=== PATIENT | female | born 1985 | race African-American/Black ===

== ENCOUNTER 2017-05-20 10:46 | Emergency (ER) | payer SELFPAY ==
[~2017-05-20] VITALS: Ht 167.6 cm; Wt 96.2 kg
[2017-05-20 11:23] VITALS: BP 132/70
[2017-05-20 11:46] LABS: BILIRUBIN,URINE NEGATIVE (NEG); GLUCOSE,URINE NEGATIVE (NEG); NITRITE,URINE NEGATIVE (NEG); PROTEIN,URINE NEGATIVE (NEG-TRACE); UROBILINOGEN,URINE 0.2 mg/dL (0.2 mg/dL)
[2017-05-20 12:02] LABS: RBC,URINE 0 /HPF (0-2)
[2017-05-20 12:03] LABS: BACTERIA,URINE 0 /HPF (0-FEW); SQUAMOUS EPITHELIAL CELL,UR MOD /LPF; TRICHOMONAS,URINE PRESENT; WBC,URINE 20-40 /HPF (0-4)
[2017-05-20] MEDS ORDERED: SULF1TAB24 PO (12:17)
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
[2017-05-20] MEDS ORDERED: GABA-586 PO (12:26)
[2017-05-20] MEDS ORDERED: AZITHROMYCIN 250 MG TABLET. PO ONE (13:00)
[2017-05-20] MEDS ORDERED: cefTRIAXone IM 250 MG VIAL IM ONE (13:00)
[2017-05-20] MEDS ORDERED: metroNIDAZOLE 500 MG TABLET PO ONE (13:00)
== END 2017-05-20 12:40 | disposition home or self-care (01) ==
LOC: ER 10:46
DX: N39.0 Urinary tract infection, site not specified (principal); G62.9 Polyneuropathy, unspecified; A59.9 Trichomoniasis, unspecified; Z88.5 Allergy status to narcotic agent; Z88.8 Allergy status to other drugs, medicaments and biological substances
CPT/HCPCS: 81001; 81025; 87086; 96372; 99284; J0696; Q0144

== ENCOUNTER 2017-07-13 12:48 | Emergency (ER) | payer SELFPAY ==
[~2017-07-13] VITALS: Ht 167.6 cm; Wt 93.0 kg
[~2017-07-13 12:48] MED LIST: GABA-586 PO; SULF1TAB24 PO
[2017-07-13 13:35] VITALS: BP 123/75
[2017-07-13] MEDS ORDERED: CYCL10TA2 PO (14:07)
[2017-07-13] MEDS ORDERED: GABA-586 PO (14:07)
--- NOTE | 2017-07-13 14:08 | PHYS DOC ---
Past Medical History Past Medical History: Seizure, Other Additional Past Medical Histor: neuropathy Past Surgical History: Tubal ligation, Other Additional Past Surgical Histo: hand Alcohol Use: Occasionally Drug Use: None Adult General Chief Complaint Chief Complaint: MEDICATION REFILL [facility] HPI Patient is a 31 year old female presents to the emergency room saying that she is having lower back pain and discomfort. She states that she feels as though she 7 a spasming pain. She states he notices more when she is not working however when she is at work she states that she has sharp pains across his upper back. Patient states that she has neuropathy in her lower legs. She denies any pain or discomfort at the current time except for that in her lower back. Patient states she is on Neurontin which she takes for her seizures. Patient states that the Aleve arthritis helps with her feet pain and discomfort. Patient denies any loss of bowel or bladder denies any recent trauma. Review of Systems Review of Systems Constitutional: Denies fever or chills [] Eyes: Denies change in visual acuity, redness, or eye pain [] HENT: Denies nasal congestion or sore throat [] Respiratory: Denies cough or shortness of breath [] Cardiovascular: No additional information not addressed in HPI [] GI: Denies abdominal pain, nausea, vomiting, bloody stools or diarrhea [] : Denies dysuria or hematuria [] Musculoskeletal: lower back pain denies joint pain [] Integument: Denies rash or skin lesions [] Neurologic: Denies headache, focal weakness or sensory changes [] Endocrine: Denies polyuria or polydipsia [] All other systems were reviewed and found to be within normal limits, except as documented in this note. Allergies Allergies Allergies Coded Allergies Type Severity Reaction Last Updated Verified morphine Allergy Severe 05/20/17 Yes butorphanol Allergy Intermediate Hives 05/20/17 Yes Physical Exam Physical Exam Constitutional: Well developed, well nourished, no acute distress, non-toxic appearance. [] HENT: Normocephalic, atraumatic, bilateral external ears normal, oropharynx moist, no oral exudates, nose normal. [] Eyes: PERRLA, EOMI, conjunctiva normal, no discharge. [] Neck: Normal range of motion, no tenderness, supple, no stridor. [] Cardiovascular:Heart rate regular rhythm, no murmur [] Lungs & Thorax: Bilateral breath sounds clear to auscultation [] Abdomen: Bowel sounds normal, soft, no tenderness, no masses, no pulsatile masses. [] Skin: Warm, dry, no erythema, no rash. [] Back: No tenderness Extremities: No tenderness, no cyanosis, no clubbing, ROM intact, no edema. [] Neurologic: Alert and oriented X 3, normal motor function, normal sensory function, no focal deficits noted. [] Psychologic: Affect normal, judgement normal, mood normal. [] Current Patient Data Vital Signs Vital Signs Date Time Temp Pulse Resp B/P (MAP) Pulse Ox O2 Delivery O2 Flow Rate FiO2 07/13/17 13:35 98.8 92 20 97 Room Air 98.8 EKG EKG [] Radiology/Procedures Radiology/Procedures [] Course & Med Decision Making Course & Med Decision Making Pertinent Labs and Imaging studies reviewed. (See chart for details) Patient will be provided with Flexeril, recommended Aleve patient will be provided with gabapentin. Patient was instructed that Flexeril will cause drowsiness to take any regular and oriented. Patient will be discharged home in stable condition recommended ice packs on 20 minutes off several times a day. []I've spoken with the patient and/or caregivers. I've explained the patient's condition, diagnosis and treatment plan based on information available to me at this time. I've answered the patient's and/or caregivers questions and addressed any concerns. The patient and/or caregivers have a good understanding the patient's diagnosis, condition and treatment plan as can be expected at this point. Vital signs have been stabilized. The patient's condition is stable for discharge from the emergency department. The patient will pursue further outpatient evaluation with her primary care provider or other designated consulting physician as outlined in the discharge instructions. Patient and/or caregivers are agreeable to this plan of care and follow-up instructions have been explained in detail. The patient and/or caregivers have received these instructions in written format and expressed understanding of these discharge instructions. The patient and her caregivers are aware that if any significant change in condition or worsening of symptoms should prompt him to immediately return to this of the closest emergency department. If an emergent department is not readily available I would encourage him to call 911. Mikel Disclaimer Mikel Disclaimer This electronic medical record was generated, in whole or in part, using a voice recognition dictation system. Departure Departure Impression: Primary Impression: Medication refill Additional Impression: Back pain Disposition: 01 HOME, SELF-CARE Condition: STABLE Referrals: NO PCP (PCP) Patient Instructions: Back Pain, Adult, [id number], Medication Refill, Emergency Department Additional Instructions: Activity as tolerated. Medications prescribed. Flexural cause drowsiness do not take if needed to be alert and oriented. Make sure you eat when taking the Aleve to prevent upset stomach. Ice packs on 20 minutes off several times a day. Follow-up with the primary care physician in the next 5-7 days. Return back to her spreaders and symptoms become worse. Scripts Gabapentin (GABAPENTIN) 300 Mg Capsule 300 MG PO TID, #60 CAP Prov: LENARD HUTCHINS APRN 07/13/17 Cyclobenzaprine Hcl (CYCLOBENZAPRINE HCL) 10 Mg Tablet 1 TAB PO TID Y for MUSCLE SPASMS, #30 TAB Prov: LENARD HUTCHINS APRN 07/13/17 Problem Qualifiers Additional Impression: Back pain Back pain location: low back pain Chronicity: unspecified Back pain laterality: unspecified Sciatica presence: unspecified whether sciatica present Qualified Codes: M54.5 - Low back pain LENARD HUTCHINS APRN Jul 13, 2017 14:08
== END 2017-07-13 14:15 | disposition home or self-care (01) ==
LOC: ER 12:48
DX: M54.5 Low back pain (principal); Z76.0 Encounter for issue of repeat prescription; Z98.51 Tubal ligation status; Z88.5 Allergy status to narcotic agent; Z88.8 Allergy status to other drugs, medicaments and biological substances
CPT/HCPCS: 99283

== ENCOUNTER 2017-07-27 15:48 | Emergency (ER) | payer OTHER ==
[~2017-07-27] VITALS: Ht 167.6 cm; Wt 86.2 kg
[~2017-07-27 15:48] MED LIST changes: +CYCL10TA2 PO
[2017-07-27 16:13] VITALS: BP 118/75
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
[2017-07-27 16:28] LABS: BILIRUBIN,URINE SMALL (NEG); GLUCOSE,URINE NEGATIVE (NEG); NITRITE,URINE NEGATIVE (NEG); PH,URINE 6.5; PROTEIN,URINE 100 mg/dL (NEG-TRACE)
[2017-07-27 16:57] LABS: BACTERIA,URINE FEW /HPF (0-FEW); RBC,URINE >40 /HPF (0-2); SQUAMOUS EPITHELIAL CELL,UR FEW /LPF; WBC,URINE OCC /HPF (0-4)
[2017-07-27] MEDS ORDERED: FLUC150T PO (17:02)
[2017-07-27] MEDS ORDERED: DOXY100T9 PO (17:02)
[2017-07-27] MEDS ORDERED: cefTRIAXone IM 250 MG VIAL IM ONE (17:15)
[2017-07-27] MEDS ORDERED: AZITHROMYCIN 250 MG TABLET. PO ONE (17:15)
== END 2017-07-27 17:25 | disposition home or self-care (01) ==
LOC: ER 15:48
DX: R30.0 Dysuria (principal); R31.9 Hematuria, unspecified; G62.9 Polyneuropathy, unspecified; Z87.440 Personal history of urinary (tract) infections; Z88.5 Allergy status to narcotic agent; Z88.8 Allergy status to other drugs, medicaments and biological substances
CPT/HCPCS: 81001; 81025; 87491; 87591; 96372; 99284; J0696; Q0144

== ENCOUNTER 2017-12-25 15:11 | Emergency (ER) | payer SELFPAY, OTHER ==
[2017-12-25 15:38] LABS: URINE HCG POC HCG NEGATIVE (Negative)
[2017-12-25 15:49] LABS: BILIRUBIN,URINE NEGATIVE (NEG); CLARITY,URINE CLEAR; COLOR,URINE YELLOW; GLUCOSE,URINE NEGATIVE (NEG); NITRITE,URINE NEGATIVE (NEG); PROTEIN,URINE NEGATIVE (NEG-TRACE); UROBILINOGEN,URINE 0.2 mg/dL (0.2 mg/dL)
[2017-12-25 15:56] LABS: BACTERIA,URINE MOD /HPF (0-FEW); RBC,URINE 0 /HPF (0-2); SQUAMOUS EPITHELIAL CELL,UR MANY /LPF; TRICHOMONAS,URINE PRESENT
== END 2017-12-25 16:25 | disposition home or self-care (01) ==
LOC: ER 16:25
DX: N39.0 Urinary tract infection, site not specified (principal); J02.9 Acute pharyngitis, unspecified; R05 Cough; F12.10 Cannabis abuse, uncomplicated; F14.10 Cocaine abuse, uncomplicated; E11.9 Type 2 diabetes mellitus without complications; Z98.51 Tubal ligation status; Z88.6 Allergy status to analgesic agent; Z88.5 Allergy status to narcotic agent
CPT/HCPCS: 71046; 81001; 81025; 99285-25

== ENCOUNTER 2018-03-27 12:12 | Emergency (ER) | payer SELFPAY ==
[2018-03-27 13:06] LABS: ADD MAN DIFF? NO
[2018-03-27 13:09] LABS: URINE HCG POC HCG NEGATIVE (Negative)
[2018-03-27 13:11] LABS: BILIRUBIN,URINE NEGATIVE (NEG); CLARITY,URINE CLEAR; COLOR,URINE YELLOW; GLUCOSE,URINE NEGATIVE (NEG); NITRITE,URINE POSITIVE (NEG); PROTEIN,URINE NEGATIVE (NEG-TRACE)
[2018-03-27 13:15] LABS: BASO % 0 % (0-3); EOS # 0.1 x10^3/uL (0.0-0.7); EOS % 1 % (0-3); HEMATOCRIT 40.2 % (36.0-47.0); HEMOGLOBIN 13.8 g/dL (12.0-15.5); LYMPH # 1.8 x10^3/uL (1.0-4.8); LYMPH % 28 % (24-48); MEAN CORPUSCULAR HEMOGLOBIN 31 pg (25-35); MEAN CORPUSCULAR HGB CONC 34 g/dL (31-37); MEAN CORPUSCULAR VOLUME 90 fL (79-100); MONO # 0.5 x10^3/uL (0.0-1.1); MONO % 9 % (0-9); NEUT # 3.9 x10^3uL (1.8-7.7); NEUT % 62 % (31-73); PLATELET COUNT 277 x10^3/uL (140-400); RED BLOOD COUNT 4.44 x10^6/uL (3.50-5.40); RED CELL DISTRIBUTION WIDTH 13.2 % (11.5-14.5); WHITE BLOOD COUNT 6.3 x10^3/uL (4.0-11.0)
[2018-03-27 13:23] LABS: ANION GAP 4 (6-14); BACTERIA,URINE FEW /HPF (0-FEW); BLOOD UREA NITROGEN 13 mg/dL (7-20); BUN/CREATININE RATIO 11 (6-20); CALCIUM 9.2 mg/dL (8.5-10.1); CARBON DIOXIDE 30 mmol/L (21-32); CHLORIDE 104 mmol/L (98-107); CREATININE 1.2 mg/dL (0.6-1.0); GFR 63.8; GLUCOSE 76 mg/dL (70-99); POTASSIUM 3.9 mmol/L (3.5-5.1); RBC,URINE 0 /HPF (0-2); SODIUM 138 mmol/L (136-145); SQUAMOUS EPITHELIAL CELL,UR MOD /LPF
[2018-03-27 13:29] LABS: ALBUMIN/GLOBULIN RATIO 1.1 (1.0-1.7); ALK PHOS 77 U/L (46-116); ALT (SGPT) 32 U/L (14-59); AST (SGOT) 26 U/L (15-37); TOTAL BILIRUBIN 0.6 mg/dL (0.2-1.0); TOTAL PROTEIN 7.5 g/dL (6.4-8.2)
== END 2018-03-27 15:20 | disposition home or self-care (01) ==
LOC: ER 12:12
DX: S09.90XA Unspecified injury of head, initial encounter (principal); S20.212A Contusion of left front wall of thorax, initial encounter; S20.211A Contusion of right front wall of thorax, initial encounter; N39.0 Urinary tract infection, site not specified; F41.9 Anxiety disorder, unspecified; J45.909 Unspecified asthma, uncomplicated; Z98.51 Tubal ligation status; Z88.5 Allergy status to narcotic agent; Z88.8 Allergy status to other drugs, medicaments and biological substances; V03.90XA Pedestrian on foot injured in collision with car, pick-up truck or van, unspecified whether traffic or nontraffic accident, initial encounter; Y93.01 Activity, walking, marching and hiking; Y92.89 Other specified places as the place of occurrence of the external cause; Y99.8 Other external cause status
CPT/HCPCS: 36415; 70450; 71111; 72125; 80053; 81001; 81025; 85025; 87086; 99285-25

== ENCOUNTER 2020-05-27 13:10 | Emergency (ER) | payer SELFPAY ==
[~2020-05-27] VITALS: Ht 167.6 cm; Wt 88.6 kg
[~2020-05-27 13:10] MED LIST changes: +DICL50TA4 PO; +DOXY-96 PO; +FLUC150T PO; -GABA-586 PO; +GABA300C18 PO; +GUAI118L20 PO; +LEVO750T31 PO; +TRAM50TA PO
[2020-05-27 13:30] VITALS: BP 128/76
[2020-05-27] MEDS ORDERED: BENZ100C PO (14:24)
[2020-05-27] MEDS ORDERED: PRED50TA PO (14:24)
--- NOTE | 2020-05-27 14:25 | PHYS DOC ---
Past Medical History Past Medical History: Anxiety, Asthma, Seizure, Other Additional Past Medical Histor: neuropathy Past Surgical History: Tubal ligation, Other Additional Past Surgical Histo: L hand Smoking Status: Current Every Day Smoker Additional Information: Alcohol Use: Occasionally Drug Use: Cocaine, Marijuana General Adult EDM: Chief Complaint: COUGH HPI: HPI: Patient is a 34 year old female with history of anxiety, asthma, current smoker, who presents to the ED today complaining of a productive cough for 5 days. Patient denies any fever. She states she was seen at the health department 3 days ago and had a negative COVID19 test. She states she does not want any x-rays, she states she wants medicine for her cough only. She states she already has breathing treatments at home which are not helping. Review of Systems: Review of Systems: Constitutional: Denies fever or chills. [] Eyes: Denies change in visual acuity. [] HENT: Denies nasal congestion or sore throat. [] Respiratory: Reports cough, denies shortness of breath. [] Cardiovascular: Denies chest pain or edema. [] GI: Denies abdominal pain, nausea, vomiting, bloody stools or diarrhea. [] : Denies dysuria. [] Musculoskeletal: Denies back pain or joint pain. [] Integument: Denies rash. [] Neurologic: Denies headache, focal weakness or sensory changes. [] Psychiatric: Denies depression or anxiety. [] Heart Score: Risk Factors: Risk Factors: DM, Current or recent (<one month) smoker, HTN, HLP, family history of CAD, obesity. Risk Scores: Score 0 - 3: 2.5% MACE over next 6 weeks - Discharge Home Score 4 - 6: 20.3% MACE over next 6 weeks - Admit for Clinical Observation Score 7 - 10: 72.7% MACE over next 6 weeks - Early Invasive Strategies Allergies: Allergies: Allergies Coded Allergies Type Severity Reaction Last Updated Verified morphine Allergy Severe 05/20/17 Yes butorphanol Allergy Intermediate Hives 05/20/17 Yes Physical Exam: PE: Constitutional: Well developed, well nourished, no acute distress, non-toxic appearance. [] HENT: Normocephalic, atraumatic, bilateral external ears normal, oropharynx moist, no oral exudates, nose normal. [] Eyes: PERRLA, EOMI, conjunctiva normal, no discharge. [] Neck: Normal range of motion, no tenderness, supple, no stridor. [] Cardiovascular:Heart rate regular rhythm, no murmur [] Lungs & Thorax: Bilateral breath sounds clear to auscultation [] Abdomen: Bowel sounds normal, soft, no tenderness, no masses, no pulsatile masses. [] Skin: Warm, dry, no erythema, no rash. [] Back: No tenderness, no CVA tenderness. [] Extremities: No tenderness, no cyanosis, no clubbing, ROM intact, no edema. [] Neurologic: Alert and oriented X 3, normal motor function, normal sensory function, no focal deficits noted. [] Psychologic: Affect normal, judgement normal, mood normal. [] Current Patient Data: Vital Signs: Vital Signs Date Time Temp Pulse Resp B/P (MAP) Pulse Ox O2 Delivery O2 Flow Rate FiO2 05/27/20 13:30 98.1 74 20 128/76 (93) 97 Room Air 98.1 EKG: EKG: [] Radiology/Procedures: Radiology/Procedures: [] Course & Med Decision Making: Course & Med Decision Making Pertinent Labs and Imaging studies reviewed. (See chart for details) This is a 34-year-old female patient with history of smoking presenting to the ED today complaining of a cough for 5 days. She reports having a negative COVID19 testing done at the health department on Wednesday which was negative. She is refusing a chest x-ray, she is requesting something for her cough only. Give a prescription for Tessalon Perles. She already has inhalers. Also given a prescription for prednisone. She was encouraged to consider smoking cessation which she stated she will not. She states she stopped doing drugs so she canno t stop smoking. Dragon Disclaimer: Mikel Disclaimer: This electronic medical record was generated, in whole or in part, using a voice recognition dictation system. Departure Departure Impression: Primary Impression: Bronchitis, acute Qualified Codes: J20.9 - Acute bronchitis, unspecified Additional Impression: Smoking addiction Disposition: HOME, SELF-CARE Condition: STABLE Referrals: NO PCP (PCP) follow up with your doctor in one week Patient Instructions: Acute Bronchitis, Smoking Cessation Additional Instructions: You were evaluated for cough. Consider smoking cessation. Use the medicines provided as ordered. Follow up with your doctor in one week Scripts Benzonatate (TESSALON PERLE) 100 Mg Capsule 1 CAP PO TID, #21 CAP Prov: JESUS GIVENS APRN 05/27/20 Prednisone (PREDNISONE) 50 Mg Tablet 1 TAB PO DAILY, #5 TAB Prov: JESUS GIVENS APRN 05/27/20 Justicifation of Admission Dx: Justifications for Admission: Justification of Admission Dx: N/A JESUS GIVENS APRN May 27, 2020 14:25
== END 2020-05-27 14:27 | disposition home or self-care (01) ==
LOC: ER 13:10
DX: J20.9 Acute bronchitis, unspecified (principal); R05 Cough; J45.909 Unspecified asthma, uncomplicated; F41.9 Anxiety disorder, unspecified; F17.200 Nicotine dependence, unspecified, uncomplicated; F12.90 Cannabis use, unspecified, uncomplicated; F14.90 Cocaine use, unspecified, uncomplicated; Z98.51 Tubal ligation status; Z98.890 Other specified postprocedural states; Z88.6 Allergy status to analgesic agent; Z88.8 Allergy status to other drugs, medicaments and biological substances
CPT/HCPCS: 99283

== ENCOUNTER 2020-06-25 13:15 | Emergency (ER) | payer SELFPAY ==
[~2020-06-25] VITALS: Ht 167.6 cm; Wt 85.0 kg
[~2020-06-25 13:15] MED LIST changes: +BENZ100C PO; +PRED50TA PO
[2020-06-25 14:00] VITALS: BP 148/90
[2020-06-25 14:23] LABS: BILIRUBIN,URINE NEGATIVE (NEG); CLARITY,URINE CLOUDY; COLOR,URINE ORANGE; NITRITE,URINE POSITIVE (NEG); PH,URINE 6.5 (<5.0-8.0); PROTEIN,URINE 100 mg/dL (NEG-TRACE)
[2020-06-25 14:39] LABS: BACTERIA,URINE MANY /HPF (0-FEW); WBC,URINE TNTC /HPF (0-4)
[2020-06-25] MEDS ORDERED: CEPH-264 PO (15:13)
[2020-06-25] MEDS ORDERED: ONDA4TAB12 PO (15:13)
[2020-06-25] MEDS ORDERED: PHEN100T82 PO (15:13)
--- NOTE | 2020-06-25 15:14 | PHYS DOC ---
Past Medical History Past Medical History: No Pertinent History Additional Past Medical Histor: neuropathy (LENARD GARCIA FIELD RECORDER) Past Surgical History: No Surgical History Additional Past Surgical Histo: L hand (LENARD GARCIA FIELD RECORDER) Smoking Status: Current Every Day Smoker Alcohol Use: Occasionally Drug Use: Cocaine, Marijuana (LENARD GARCIA FIELD RECORDER) General Adult EDM: Chief Complaint: PAIN ON URINATION HPI: HPI: Patient is a 34 year old female who presents with 9 days of burning with urination, bilateral flank pain and some nausea. She denies fever, vomiting, diarrhea, chest pain, shortness of air, cough, dizziness, headache, weakness. Patient states she is been taking Azo [id number] but is not getting better. She does not currently have a primary care provider but states there is 2 more days and she will have health insurance and then she will get a primary care provider. She states she does have lupus. She rates her discomfort at this time a 5 out of 10. (LENARD GARCIA FIELD RECORDER) Review of Systems: Review of Systems: Constitutional: Denies fever or chills. [] Eyes: Denies change in visual acuity. [] HENT: Denies nasal congestion or sore throat. [] Respiratory: Denies cough or shortness of breath. [] Cardiovascular: Denies chest pain or edema. [] GI: +Low mid abdominal pain, +nausea, denies vomiting, bloody stools or diarrhea. [] : + dysuria. [] Musculoskeletal: + Bilateral flank back pain or denies joint pain. [] Integument: Denies rash. [] Neurologic: Denies headache, focal weakness or sensory changes. [] Endocrine: Denies polyuria or polydipsia. [] Lymphatic: Denies swollen glands. [] Psychiatric: Denies depression or anxiety. [] (LENARD GARCIA FIELD RECORDER) Heart Score: Risk Factors: Risk Factors: DM, Current or recent (<one month) smoker, HTN, HLP, family history of CAD, obesity. Risk Scores: Score 0 - 3: 2.5% MACE over next 6 weeks - Discharge Home Score 4 - 6: 20.3% MACE over next 6 weeks - Admit for Clinical Observation Score 7 - 10: 72.7% MACE over next 6 weeks - Early Invasive Strategies (LENARD GARCIA APRN) Allergies: Allergies: Allergies Coded Allergies Type Severity Reaction Last Updated Verified morphine Allergy Severe 05/20/17 Yes butorphanol Allergy Intermediate Hives 05/20/17 Yes (LENARD GARCIA APRN) Physical Exam: PE: Constitutional: Well developed, well nourished, no acute distress, non-toxic appearance. [] HENT: Normocephalic, atraumatic, bilateral external ears normal, oropharynx moist, no oral exudates, nose normal. [] Eyes: PERRLA, EOMI, conjunctiva normal, no discharge. [] Neck: Normal range of motion, no tenderness, supple, no stridor. [] Cardiovascular:Heart rate regular rhythm, no murmur [] Lungs & Thorax: Bilateral breath sounds clear to auscultation [] Abdomen: Bowel sounds normal, soft, no tenderness, no masses, no pulsatile masses. [] Skin: Warm, dry, no erythema, no rash. [] Back: No tenderness, slight bilateral CVA tenderness. [] Extremities: No tenderness, no cyanosis, no clubbing, ROM intact, no edema. [] Neurologic: Alert and oriented X 3, normal motor function, normal sensory function, no focal deficits noted. [] Psychologic: Affect normal, judgement normal, mood normal. [] (LENARD GARCIA APRN) Current Patient Data: Labs: Laboratory Tests Test 06/25/20 14:10 06/25/20 14:18 Urine Collection Type Unknown Urine Color [place] Urine Clarity Cloudy Urine pH 6.5 (<5.0-8.0) Urine Specific [place] 1.015 (1.000-1.030) Urine Protein 100 mg/dL (NEG-TRACE) Urine Glucose (UA) Negative mg/dL (NEG) Urine Ketones (Stick) Negative mg/dL (NEG) Urine Blood Small (NEG) Urine Nitrite Positive (NEG) Urine Bilirubin Negative (NEG) Urine Urobilinogen Dipstick 1.0 mg/dL (0.2 mg/dL) Urine Leukocyte Esterase Large (NEG) Urine RBC 1-2 /HPF (0-2) Urine WBC Tntc /HPF (0-4) Urine Squamous Epithelial Cells Mod /LPF Urine Bacteria Many /HPF (0-FEW) POC Urine HCG, Qualitative Hcg negative (Negative) Vital Signs: Vital Signs Date Time Temp Pulse Resp B/P (MAP) Pulse Ox O2 Delivery O2 Flow Rate FiO2 06/25/20 14:00 97.7 89 16 148/90 (109) 100 Room Air 97.7 (LENARD GARCIA APRN) EKG: EKG: [] (LENARD GARCIA APRN) Radiology/Procedures: Radiology/Procedures: [] (LENARD GARCIA APRN) Course & Med Decision Making: Course & Med Decision Making Pertinent Labs and Imaging studies reviewed. (See chart for details) See HPI. Alert and oriented x4. Ambulatory with steady gait. Abdomen is soft and nontender. Slight bilateral flank pain. Speaks in full complete sentences. Patient states the last time she came in for a UTI they gave her Macrobid and she states that she had a reaction to it. Urinalysis shows infection. She will be put on Keflex antibiotic. Patient follow-up with her primary care provider. I will give her resources for primary care provider. I also gave her Pyridium. [] (LENARD GARCIA APRN) Dragon Disclaimer: Dragon Disclaimer: This electronic medical record was generated, in whole or in part, using a voice recognition dictation system. (LENARD GARCIA APRN) Departure Departure Impression: Primary Impression: Urinary tract infection Qualified Codes: N39.0 - Urinary tract infection, site not specified; R31.9 - Hematuria, unspecified Disposition: 01 DC HOME SELF CARE/HOMELESS Condition: STABLE Referrals: NO PCP (PCP) Patient Instructions: Urinary Tract Infection Additional Instructions: Follow-up with a primary care provider. Drink plenty of fluids. Take medication with food and as prescribed. Scripts Phenazopyridine Hcl (PYRIDIUM) 100 Mg Tablet 1 TAB PO TID for urinary discomfort for 3 Days, #9 TAB 0 Refills Prov: LENARD GARCIA APRN 06/25/20 Ondansetron (ONDANSETRON ODT) 4 Mg Tab.rapdis 1 TAB PO PRN Q6-8HRS, #16 TAB Prov: LENARD GARCIA APRN 06/25/20 Cephalexin (KEFLEX) 500 Mg Capsule 1 CAP PO BID for 7 Days, #14 CAP 0 Refills Prov: LENARD GARCIA APRN 06/25/20 Attending Signature Attending Signature I have reviewed the PA/CORRECTIONAL SUPERVISOR LIEUTENANT's note and plan of care. I was available for consultation as needed during the patient's visit in the emergency department. I agree with the clinical impression, plan, and disposition. (ALEIDA MARTE DO) LENARD GARCIA FIELD RECORDER Jun 25, 2020 15:14 ALEIDA MARTE DO Jun 25, 2020 18:44
== END 2020-06-25 15:22 | disposition home or self-care (01) ==
LOC: ER 13:15
DX: N39.0 Urinary tract infection, site not specified (principal); R31.9 Hematuria, unspecified; F17.200 Nicotine dependence, unspecified, uncomplicated; Z88.5 Allergy status to narcotic agent; Z88.8 Allergy status to other drugs, medicaments and biological substances
CPT/HCPCS: 81001; 81025; 87086; 99283

== ENCOUNTER 2020-07-14 14:56 | Emergency (ER) | payer SELFPAY ==
[~2020-07-14] VITALS: Ht 167.6 cm; Wt 86.0 kg
[~2020-07-14 14:56] MED LIST changes: +CEPH-264 PO; +ONDA4TAB12 PO; +PHEN100T82 PO
[2020-07-14 15:00] VITALS: BP 131/76
[2020-07-14] MEDS ORDERED: NAPR-682 PO (15:25)
--- NOTE | 2020-07-14 15:25 | PHYS DOC ---
Past Medical History Past Medical History: No Pertinent History Additional Past Medical Histor: neuropathy Past Surgical History: No Surgical History Additional Past Surgical Histo: L hand Smoking Status: Current Every Day Smoker Alcohol Use: Occasionally Drug Use: Cocaine, Marijuana General Adult EDM: Chief Complaint: UPPER EXTREMITY PAIN HPI: HPI: Patient is a 34 year old female who presented to ER for evaluation of right forearm pain for 4 days. Patient has been using the spraying bottle where she has to squeeze it very often at work. Patient denies any numbness or weakness. Patient denies any injury Review of Systems: Review of Systems: Constitutional: Denies fever or chills. [] Eyes: Denies change in visual acuity. [] HENT: Denies nasal congestion or sore throat. [] Respiratory: Denies cough or shortness of breath. [] Cardiovascular: Denies chest pain or edema. [] GI: Denies abdominal pain, nausea, vomiting, bloody stools or diarrhea. [] : Denies dysuria. [] Musculoskeletal: Positive for right forearm pain. Integument: Denies rash. [] Neurologic: Denies headache, focal weakness or sensory changes. [] Endocrine: Denies polyuria or polydipsia. [] Lymphatic: Denies swollen glands. [] Psychiatric: Denies depression or anxiety. [] Heart Score: Risk Factors: Risk Factors: DM, Current or recent (<one month) smoker, HTN, HLP, family history of CAD, obesity. Risk Scores: Score 0 - 3: 2.5% MACE over next 6 weeks - Discharge Home Score 4 - 6: 20.3% MACE over next 6 weeks - Admit for Clinical Observation Score 7 - 10: 72.7% MACE over next 6 weeks - Early Invasive Strategies Current Medications: Current Medications Medications (Trade) Dose Ordered Sig/Sanjiv Start Time Stop Time Status Last Admin Dose Admin Ketorolac Tromethamine (Toradol Im) 60 mg 1X ONCE 07/14/20 15:30 07/14/20 15:31 Methylprednisolone Sodium Succinate (SOLU-Medrol 125MG VIAL) 125 mg 1X ONCE 07/14/20 15:30 07/14/20 15:31 Allergies: Allergies: Allergies Coded Allergies Type Severity Reaction Last Updated Verified morphine Allergy Severe 05/20/17 Yes butorphanol Allergy Intermediate Hives 05/20/17 Yes Physical Exam: PE: Constitutional: Well developed, well nourished, no acute distress, non-toxic appearance. [] Skin: Warm, dry, no erythema, no rash. [] Extremities: Right upper extremity did not show any evidence of swelling, no redness, no deformity. There is strong radial pulse on the right side left side. There is no neurological deficit, skin warm to the touch, patient can flex and extend all her of finger in her wrists without any problem. There is some muscle tenderness from the elbow down to the wrist area on the right side Neurologic: Alert and oriented X 3, normal motor function, normal sensory function, no focal deficits noted. [] Psychologic: Affect normal, judgement normal, mood normal. [] EKG: EKG: [] Radiology/Procedures: Radiology/Procedures: [] Course & Med Decision Making: Course & Med Decision Making Pertinent Labs and Imaging studies reviewed. 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 There is no evidence of neurovascular deficit, no structural deformity. Patient will be given anti-inflammatory medication [place] Disclaimer: Mikel Disclaimer: This electronic medical record was generated, in whole or in part, using a voice recognition dictation system. Departure Departure Impression: Primary Impression: Myalgia Disposition: 01 DC HOME SELF CARE/HOMELESS Condition: STABLE Referrals: NO PCP (PCP) follow up with your doctor next week Patient Instructions: Myalgia, Adult Scripts Naproxen Sodium (ANAPROX DS) 550 Mg Tablet 1 TAB PO BID PRN for PAIN for 15 Days, #30 TAB 0 Refills Prov: EMELIA GREER DO 07/14/20 EMELIA GREER DO Jul 14, 2020 15:25
[2020-07-14] MEDS ORDERED: KETOROLAC 60 MG/2 ML VIAL. IM ONE (15:30)
[2020-07-14] MEDS ORDERED: methylPREDNISolone SOD SUCC PF 125 MG/2 ML VIAL. IM ONE (15:30)
== END 2020-07-14 15:45 | disposition home or self-care (01) ==
LOC: ER 14:56
DX: M79.10 Myalgia, unspecified site (principal); M79.631 Pain in right forearm; F17.200 Nicotine dependence, unspecified, uncomplicated; Z88.5 Allergy status to narcotic agent; Z88.8 Allergy status to other drugs, medicaments and biological substances
CPT/HCPCS: 96372; 99284; J1885; J2930

== ENCOUNTER 2020-09-01 13:49 | Emergency (ER) | payer SELFPAY ==
[~2020-09-01] VITALS: Ht 167.6 cm; Wt 82.0 kg
[~2020-09-01 13:49] MED LIST changes: +NAPR-682 PO
[2020-09-01 14:52] LABS: BILIRUBIN,URINE NEGATIVE (NEG); CLARITY,URINE CLOUDY; COLOR,URINE YELLOW; NITRITE,URINE NEGATIVE (NEG); PH,URINE 6.5 (<5.0-8.0); PROTEIN,URINE 30 mg/dL (NEG-TRACE); UROBILINOGEN,URINE 0.2 mg/dL (0.2 mg/dL)
[2020-09-01 14:58] LABS: BACTERIA,URINE MODERATE /HPF (0-FEW); WBC,URINE TNTC /HPF (0-4)
[2020-09-01 15:47] VITALS: BP 122/44
[2020-09-01] MEDS ORDERED: ONDA-84 PO (16:08)
[2020-09-01] MEDS ORDERED: SULF1TAB24 PO (16:08)
--- NOTE | 2020-09-01 16:08 | ED.ADGEN ---
Past Medical History Past Medical History: Asthma, Bronchitis, COPD Additional Past Medical Histor: neuropathy, MENTAL HEALTH Past Surgical History: No Surgical History, Tubal ligation Additional Past Surgical Histo: L hand Smoking Status: Current Every Day Smoker Alcohol Use: Occasionally Drug Use: Cocaine, Marijuana Social History Narrative: PT REPORTS FORMER COCAINE AND MARIJUANA - CLEAN FOR A FEW YEARS General Adult EDM: Chief Complaint: PAIN ON URINATION HPI: HPI: Patient is a 35 year old AA female who presents emergency department with complaints of dysuria, increased urinary frequency, and right-sided low back pa in for the last 5 days. She also complains of nausea but denies any vomiting, diarrhea, abdominal pain, fever, cough, shortness of breath, body aches, or fatigue. Patient states she gets urinary tract infections frequently. She denies any irregular vaginal discharge or vaginal odor. Patient also reports that she has had difficulty sleeping for the last 2 days. She currently denies any pain at rest. Review of Systems: Review of Systems: Complete ROS is negative unless otherwise noted in HPI. Allergies: Allergies: Allergies Coded Allergies Type Severity Reaction Last Updated Verified morphine Allergy Severe 05/20/17 Yes butorphanol Allergy Intermediate Hives 05/20/17 Yes Physical Exam: PE: See Above Constitutional: Well developed, well nourished, no acute distress, non-toxic appearance, anxious. [] HENT: Normocephalic, atraumatic, bilateral external ears normal, nose normal. [] Eyes: PERRLA, EOMI, conjunctiva normal, no discharge. [] Neck: Normal range of motion, no stridor. [] Cardiovascular:Heart rate regular rhythm Lungs & Thorax: Respirations even and unlabored, no retractions, no respiratory distress Abdomen: soft, suprapubic tenderness to palpation, Back: Right CVA tenderness, no left CVA tenderness Skin: Warm, dry, no erythema, no rash. [] Extremities: No cyanosis, ROM intact, no edema. [] Neurologic: Alert and oriented X 3, no focal deficits noted. [] Psychologic: Affect normal, judgement normal, mood normal. [] Current Patient Data: Labs: Laboratory Tests Test 09/01/20 14:15 09/01/20 14:20 Urine Collection Type Unknown Urine Color [place] Urine Clarity Cloudy Urine pH 6.5 (<5.0-8.0) Urine Specific [place] 1.015 (1.000-1.030) Urine Protein 30 mg/dL (NEG-TRACE) Urine Glucose (UA) Negative mg/dL (NEG) Urine Ketones (Stick) Negative mg/dL (NEG) Urine Blood Small (NEG) Urine Nitrite Negative (NEG) Urine Bilirubin Negative (NEG) Urine Urobilinogen Dipstick 0.2 mg/dL (0.2 mg/dL) Urine Leukocyte Esterase Large (NEG) Urine RBC /HPF (0-2) Urine WBC Tntc /HPF (0-4) Urine Bacteria Moderate /HPF (0-FEW) POC Urine HCG, Qualitative Hcg negative (Negative) Vital Signs: Vital Signs Date Time Temp Pulse Resp B/P (MAP) Pulse Ox O2 Delivery O2 Flow Rate FiO2 09/01/20 15:47 98.4 97 18 122/44 (70) 98 98.4 EKG: EKG: [] Heart Score: Risk Factors: Risk Factors: DM, Current or recent (<one month) smoker, HTN, HLP, family history of CAD, obesity. Risk Scores: Score 0 - 3: 2.5% MACE over next 6 weeks - Discharge Home Score 4 - 6: 20.3% MACE over next 6 weeks - Admit for Clinical Observation Score 7 - 10: 72.7% MACE over next 6 weeks - Early Invasive Strategies Radiology/Procedures: Radiology/Procedures: [] Course & Med Decision Making: Course & Med Decision Making Pertinent Labs and Imaging studies reviewed. (See chart for details) 35-year-old female presented to the emergency department with complaints of right low back pain and dysuria. Physical exam and urinalysis is concerning for pyelonephritis. Patient had been prescribed Keflex in May 2009 for urinary tract infection, will prescribe Bactrim DS 1 p.o. twice daily x14 days, encourage patient to continue taking Azo for relief of dysuria. Patient also complained of having insomnia for the last 2 days, I recommended an [id number] sleep aid such as Tylenol or Advil PM, or melatonin. Patient reports concerns because she saw diagnosis of trichomonas on her virtual chart in her healthcare portal that she checked online. Advised the patient that the trichomonas diagnosis was from a visit that was back in 2017 and one in 2016. I reassured her that there was no trichomonas in her urine during today's visit or during her previous visit in May. Trichomonas is a diagnosis in her portal because it was a previous diagnosis during those previous visits. [] Patient verbalized an understanding of home care, medications, follow-up, and return to ED instructions and was in agreement with the plan of care. Mikel Disclaimer: Mikel Disclaimer: This electronic medical record was generated, in whole or in part, using a voice recognition dictation system. Departure Departure Impression: Primary Impression: Pyelonephritis Additional Impression: Dysuria Disposition: 01 DC HOME SELF CARE/HOMELESS Condition: STABLE Referrals: NO PCP (PCP) Patient Instructions: Pyelonephritis, Adult, [id number] Additional Instructions: Fill prescription(s) and use as directed. Avoid bladder irritants such as caffeine, carbonation, and spicy foods. Increase clear fluids. Follow up with your primary care doctor in 1 to 2 days, return to the ER if symptoms worsen, you cannot keep your medication down, or fever develops. Scripts Ondansetron Hcl (ONDANSETRON HCL) 4 Mg Tablet 1 TAB PO PRN Q6HRS PRN for NAUSEA/VOMITING for 3 Days, #10 TAB 0 Refills Prov: CHICHO LOPEZ APRN 09/01/20 Sulfamethoxazole/Trimethoprim (BACTRIM DS TABLET) 1 Each Tablet 1 TAB PO BID for 14 Days, #28 TAB 0 Refills Prov: CHICHO LOPEZ APRN 09/01/20 Problem Qualifiers CHICHO LOPEZ APRN Sep 01, 2020 16:08
== END 2020-09-01 16:35 | disposition home or self-care (01) ==
LOC: ER 13:49
DX: N12 Tubulo-interstitial nephritis, not specified as acute or chronic (principal); R30.0 Dysuria; M54.5 Low back pain; J44.9 Chronic obstructive pulmonary disease, unspecified; F17.200 Nicotine dependence, unspecified, uncomplicated; F12.90 Cannabis use, unspecified, uncomplicated; F14.90 Cocaine use, unspecified, uncomplicated; Z98.51 Tubal ligation status; Z98.890 Other specified postprocedural states; Z88.6 Allergy status to analgesic agent; Z88.8 Allergy status to other drugs, medicaments and biological substances
CPT/HCPCS: 81001; 81025; 87086; 99283

== ENCOUNTER 2020-10-08 14:08 | Emergency (ER) | payer SELFPAY ==
[~2020-10-08] VITALS: Ht 167.6 cm; Wt 83.6 kg
[~2020-10-08 14:08] MED LIST changes: +ONDA-84 PO
[2020-10-08 16:01] VITALS: BP 129/79
--- NOTE | 2020-10-08 16:29 | ED.ADGEN ---
Past Medical History Past Medical History: Asthma, Bronchitis, COPD Additional Past Medical Histor: neuropathy, MENTAL HEALTH Past Surgical History: Tubal ligation Additional Past Surgical Histo: L hand Smoking Status: Current Every Day Smoker Alcohol Use: Occasionally Drug Use: Cocaine, Marijuana General Adult EDM: Chief Complaint: UPPER EXTREMITY PAIN HPI: HPI: Patient is a 35 year old AA female who presents emergency department with complaints of pain in the lateral aspect of her left elbow to the forearm for last 2 days. She denies any recent injury, or trauma. 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 She states that the fourth and fifth digits of her left hand and the lateral aspect of her third digit feel tingly and numb. Patient states symptoms started 2 days ago. She currently rates the pain a 7 out of 10 on the pain scale, she denies any alleviating factors. Review of Systems: Review of Systems: Complete ROS is negative unless otherwise noted in HPI. Allergies: Allergies: Allergies Coded Allergies Type Severity Reaction Last Updated Verified morphine Allergy Severe 05/20/17 Yes butorphanol Allergy Intermediate Hives 05/20/17 Yes Physical Exam: PE: See Above Constitutional: Well developed, well nourished, no acute distress, non-toxic appearance. [] HENT: Normocephalic, atraumatic, bilateral external ears normal, nose normal. [] Eyes: PERRLA, EOMI, conjunctiva normal, no discharge. [] Neck: Normal range of motion, no stridor. [] Cardiovascular:Heart rate regular rhythm Lungs & Thorax: Respirations even and unlabored, no retractions, no respiratory distress Skin: Warm, dry, no erythema, no rash. [] Extremities: Left elbow: Lateral tenderness to palpation without deformity or crepitus, no edema, no cyanosis, ROM intact Neurologic: Alert and oriented X 3, no focal deficits noted; decreased sensation in the fourth digit, fifth digit, and lateral aspect of the third digit. Psychologic: Affect normal, judgement normal, mood normal. [] Current Patient Data: Labs: Laboratory Tests Test 10/08/20 16:02 POC Urine HCG, Qualitative Hcg negative (Negative) Vital Signs: Vital Signs Date Time Temp Pulse Resp B/P (MAP) Pulse Ox O2 Delivery O2 Flow Rate FiO2 10/08/20 16:01 97.1 105 16 129/79 (96) 96 Room Air 97.1 EKG: EKG: [] Heart Score: Risk Factors: Risk Factors: DM, Current or recent (<one month) smoker, HTN, HLP, family history of CAD, obesity. Risk Scores: Score 0 - 3: 2.5% MACE over next 6 weeks - Discharge Home Score 4 - 6: 20.3% MACE over next 6 weeks - Admit for Clinical Observation Score 7 - 10: 72.7% MACE over next 6 weeks - Early Invasive Strategies Radiology/Procedures: Radiology/Procedures: [] Course & Med Decision Making: Course & Med Decision Making Pertinent Labs and Imaging studies reviewed. (See chart for details) [] Dragon Disclaimer: Dragon Disclaimer: This electronic medical record was generated, in whole or in part, using a voice recognition dictation system. Departure Departure Impression: Primary Impression: Cubital tunnel syndrome on left Disposition: 01 DC HOME SELF CARE/HOMELESS Condition: STABLE Referrals: MARY RODRIGUEZ MD Patient Instructions: Cubital Tunnel Syndrome-Sports[facility] Additional Instructions: Take 2 tablets of Aleve twice a day with food for 2 weeks. Recommend that you purchase a forearm splint for cubital tunnel. Follow up with Dr. Rodriguez if symptoms persist. REturn to the ER if symptoms worsen. CHICHO LOPEZ APRN Oct 08, 2020 16:28
== END 2020-10-08 16:45 | disposition home or self-care (01) ==
LOC: ER 14:08
DX: G56.22 Lesion of ulnar nerve, left upper limb (principal); M25.522 Pain in left elbow; J44.9 Chronic obstructive pulmonary disease, unspecified; F17.200 Nicotine dependence, unspecified, uncomplicated; F12.90 Cannabis use, unspecified, uncomplicated; F14.90 Cocaine use, unspecified, uncomplicated; Z98.51 Tubal ligation status; Z98.890 Other specified postprocedural states; Z88.6 Allergy status to analgesic agent; Z88.8 Allergy status to other drugs, medicaments and biological substances
CPT/HCPCS: 81025; 99282

== ENCOUNTER 2021-01-06 22:02 | Emergency (ER) | payer SELFPAY ==
[~2021-01-06] VITALS: Ht 167.6 cm; Wt 90.0 kg
--- NOTE | 2021-01-06 22:09 | PHYS DOC ---
Past Medical History Past Medical History: Asthma, Bronchitis, COPD Additional Past Medical Histor: neuropathy, MENTAL HEALTH Past Surgical History: Tubal ligation Additional Past Surgical Histo: L hand Smoking Status: Current Every Day Smoker Alcohol Use: Occasionally Drug Use: Cocaine, Marijuana General Adult EDM: Chief Complaint: HEAD INJURY/TRAUMA HPI: HPI: Patient is a 35-year-old female with history of seizures on Dilantin presents via EMS for head injury. Reports she was at her house when a piece of drywall o n the ceiling fell down and hit her on the superior portion of her head. States she did not lose consciousness but reports falling unbalanced and fell backwards over a couch. Denies any significant injury, loss of consciousness as mentioned, is not on any blood thinners, no motor or sensory function changes, no neurologic deficits reported. EMS was called due to nature of event by family as there was concern given patient's history of seizures. Patient presents via EMS reporting dull headache otherwise no vision changes or other concerning abnormalities such as nausea and vomit. Patient was ambulatory from ambulance bay into ER room Review of Systems: Review of Systems: Fourteen body systems of review of systems have been reviewed. See HPI for pertinent positives and negative responses, other cano all other systems are negative, non-pertinent or non-contributory Heart Score: C/O Chest Pain: No Risk Factors: Risk Factors: DM, Current or recent (<one month) smoker, HTN, HLP, family history of CAD, obesity. Risk Scores: Score 0 - 3: 2.5% MACE over next 6 weeks - Discharge Home Score 4 - 6: 20.3% MACE over next 6 weeks - Admit for Clinical Observation Score 7 - 10: 72.7% MACE over next 6 weeks - Early Invasive Strategies Allergies: Allergies: Allergies Coded Allergies Type Severity Reaction Last Updated Verified morphine Allergy Severe 05/20/17 Yes butorphanol Allergy Intermediate Hives 05/20/17 Yes Physical Exam: PE: Constitutional: Pt is oriented to person, place, and time. Pt appears well-developed and well- nourished. HEENT: Head: Normocephalic and atraumatic. TMs clear, no hemotympanum Conjunctivae and EOM are normal. Pupils are equal, round, and reactive to light. Oropharynx is clear and moist. No hematomas or lacerations or abrasions to face or scalp OP clear, no blood, no malocclusion, dentition intact Nares clear, no nasal septal hematoma Midface stable Neck: C-spine midline nontender, no step-offs Cardiovascular: Normal rate, regular rhythm and normal heart sounds. Pulmonary/Chest: Effort normal and breath sounds normal. No respiratory distress. No wheezes. CTA bilaterally Abdominal: Soft. Bowel sounds are normal. Pt exhibits no distension. There is no tender ness. Musculoskeletal: No bony tenderness to extremities, no deformities, full ROM extremities Chest wall stable Pelvis stable and non-tender No vertebral TTP and spine without stepoffs Neurological: Pt is alert and oriented to person, place, and time. Moving all extremities willfully, able to wiggle all fingers and toes Alert and oriented x 3 Motor and sensory function intact Cranial nerves II through XII intact Skin: Skin is warm and dry. No abrasions, no lacerations Psychiatric: Behavior is appropriate for situation Current Patient Data: Labs: Laboratory Tests Test 01/06/21 22:51 Bedside Urine HCG, Qualitative Hcg negative Vital Signs: Vital Signs Date Time Temp Pulse Resp B/P (MAP) Pulse Ox O2 Delivery O2 Flow Rate FiO2 01/06/21 22:21 98.6 87 20 137/84 (101) 96 Room Air 98.6 Vital Signs Date Time Temp Pulse Resp B/P (MAP) Pulse Ox O2 Delivery O2 Flow Rate FiO2 01/06/21 22:21 98.6 87 20 137/84 (101) 96 Room Air 98.6 EKG: EKG: [] Radiology/Procedures: Radiology/Procedures: EXAM: 1. CT HEAD WITHOUT CONTRAST. 2. CT CERVICAL SPINE WITHOUT CONTRAST. HISTORY: Head injury, neck pain. TECHNIQUE: Computed tomography of the head and cervical spine was performed without intravenous contrast. One or more of the following individualized dose reduction techniques were utilized for this examination: 1. Automated exposure control. 2. Adjustment of the mA and/or kV according to patient size. 3. Use of iterative reconstruction technique. COMPARISON: 03/27/2018. FINDINGS: There is no intracranial hemorrhage. Stubbs-white differentiation is preserved. The ventricles are normal in size and position. The visualized paranasal sinuses appear clear. The orbits are unremarkable. The temporal bones are unremarkable. The calvarium reveals no suspicious lesions. Alignment is maintained. The craniocervical junction is unremarkable. No fractures are identified. There is mild loss of intervertebral disc height at C4-5. There is no prevertebral soft tissue swelling. There is no central canal stenosis or neural foraminal stenosis. IMPRESSION: 1. No acute intracranial findings. 2. No cervical fracture or malalignment. Electronically signed by: Julio Calderon MD (01/06/2021 11:29 PM) [facility] Course & Med Decision Making: Course & Med Decision Making Discussed with the patient all findings and diagnostic testing. I discussed most likely diagnosis of closed head injury with concern for potential concussion. Imaging while in ER was grossly unremarkable, physical exam nonconcerning for emergent or surgical issues. I stressed need for close outpatient follow-up to review today's ER visit. Strict return precautions were also discussed at length with good understanding by patient. Patient voiced understanding and agreement with the plan. Patient knows to come back for repeat evaluation if concerning signs or symptoms present prior to outpatient follow-up. Hemodynamically stable, ambulatory tolerating p.o. intake and well-appearing at time of disposition. Mikel Disclaimer: Mikel Disclaimer: This electronic medical record was generated, in whole or in part, using a voice recognition dictation system. Departure Departure Impression: Primary Impression: Head injury, closed Disposition: 01 HOME / SELF CARE / HOMELESS Condition: STABLE Referrals: NO PCP (PCP) Patient Instructions: Head Injury, Adult Additional Instructions: You were seen for a headache after head trauma. Your CT scan did not show any acute fracture or bleeding. You most likely have a concussion. You should avoid any further head trauma. If you continue to have symptoms you need to be evaluated by a primary care physician. You should return to the ED if you develop worsening pain, numbness, tingling, weakness, vomiting, vision change, or any other new or concerning symptoms. It was a pleasure to take care of you and I wish you a speedy recovery TRAE CHAVEZ DO January 06, 2021 22:09
--- NOTE | 2021-01-06 23:31 | RAD ---
EXAM: 1. CT HEAD WITHOUT CONTRAST. 2. CT CERVICAL SPINE WITHOUT CONTRAST. HISTORY: Head injury, neck pain. TECHNIQUE: Computed tomography of the head and cervical spine was performed without intravenous contr ast. One or more of the following individualized dose reduction techniques were utilized for this exa mination: 1. Automated exposure control. 2. Adjustment of the mA and/or kV according to patient size. 3. Use of iterative reconstruction technique. COMPARISON: 03/27/2018. FINDINGS: There is no intracranial hemorrhage. Stubbs-white differentiation is preserved. The ventricl es are normal in size and position. The visualized paranasal sinuses appear clear. The orbits are unremarkable. The temporal bones are un remarkable. The calvarium reveals no suspicious lesions. Alignment is maintained. The craniocervical junction is unremarkable. No fractures are identified. Th ere is mild loss of intervertebral disc height at C4-5. There is no prevertebral soft tissue swelling . There is no central canal stenosis or neural foraminal stenosis. IMPRESSION: 1. No acute intracranial findings. 2. No cervical fracture or malalignment. Electronically signed by: Julio Calderon MD (01/06/2021 11:29 PM) [facility]
[2021-01-06 23:42] VITALS: BP 115/67
== END 2021-01-06 23:53 | disposition home or self-care (01) ==
LOC: ER 22:02
DX: S09.90XA Unspecified injury of head, initial encounter (principal); R51.9 Headache, unspecified; R11.2 Nausea with vomiting, unspecified; J44.9 Chronic obstructive pulmonary disease, unspecified; F17.200 Nicotine dependence, unspecified, uncomplicated; Z98.51 Tubal ligation status; W01.0XXA Fall on same level from slipping, tripping and stumbling without subsequent striking against object, initial encounter; Y93.89 Activity, other specified; Y92.89 Other specified places as the place of occurrence of the external cause; Y99.8 Other external cause status
CPT/HCPCS: 70450; 72125; 81025; 99285-25